=== PATIENT | male | born 1970 | race African-American/Black ===

== ENCOUNTER 2019-08-05 23:46 | Emergency (ER) | payer MEDICAID ==
[~2019-08-05] VITALS: Ht 182.9 cm; Wt 79.0 kg
[2019-08-06] MEDS ORDERED: KETOROLAC 30MG/ML VIAL IM ONE (00:30)
[2019-08-06 01:36] LABS: CLARITY URINE CLEAR (CLEAR); COLOR URINE YELLOW (YELLOW); KETONES URINE NEGATIVE (NEGATIVE); LEUKOCYTE ESTERASE URINE NEGATIVE (NEGATIVE); NITRITE URINE NEGATIVE (NEGATIVE); OCCULT BLOOD URINE NEGATIVE (NEGATIVE); PH URINE 6.5 (4.5-8.0); PROTEIN URINE NEGATIVE (NEGATIVE); SPECIFIC GRAVITY URINE 1.017 (1.005-1.030)
[2019-08-06 02:18] LABS: *AMPHETAMINES SCREEN URINE PRESUMTIVE POSITIVE (NEGATIVE); *BARBITURATES SCREEN URINE NEGATIVE (NEGATIVE); *BENZODIAZEPINES SCREEN URINE NEGATIVE (NEGATIVE); *COCAINE SCREEN URINE NEGATIVE (NEGATIVE); METHADONE URINE SCREEN NEGATIVE (NEGATIVE); OPIATES URINE SCREEN NEGATIVE (NEGATIVE)
[2019-08-06 02:19] LABS: CANNABINOID URINE SCREEN NEGATIVE (NEGATIVE); PHENCYCLIDINE URINE SCREEN NEGATIVE (NEGATIVE)
[2019-08-06 15:30] VITALS: BP 136/84
== END 2019-08-06 15:40 | disposition home or self-care (01) ==
LOC: ER 23:46
DX: M54.5 Low back pain (principal); M54.30 Sciatica, unspecified side; I10 Essential (primary) hypertension; Z59.0 Homelessness
CPT/HCPCS: 80305; 81003; 96372; 99283; J1885